=== PATIENT | female | born 1975 | race Caucasian/White ===

== ENCOUNTER 2024-01-23 07:41 | Day surgery (SDC) | payer OTHER ==
[~2024-01-23] VITALS: Ht 154.9 cm; Wt 106.0 kg
--- NOTE | ~2024-01-23 | OR ---
[facility] [address] [place] [id number] Draft DATE OF OPERATION: 01/23/2024 SURGEON: Henry Piña DO PREOPERATIVE DIAGNOSES: 1. Abnormal uterine bleeding. 2. Dysmenorrhea. 3. Submucosal fibroid. 4. Cervical cancer screening. POSTOPERATIVE DIAGNOSES: 1. Abnormal uterine bleeding. 2. Dysmenorrhea. 3. Submucosal fibroid. 4. Cervical cancer screening. PROCEDURES PERFORMED: 1. Hysteroscopic myomectomy. 2. Dilation and curettage. 3. Pap under anesthesia. ESTIMATED BLOOD LOSS: 5 mL. FLUID DEFICIT: 270. ANESTHESIA: MAC. COMPLICATIONS: None. SPECIMENS: Endometrial curettings and submucosal fibroid. FINDINGS: Normal external genitalia. Normal clitoris, urethral meatus, bilateral [place] and [place] glands. Normal vagina and cervix. On hysteroscopy, normal cervical os and bilateral tubal ostia. Somewhat thickened endometrium with large submucosal fibroid PATIENT NAME: SHANTI BRITO OPERATIVE REPORT DATE OF : [birth year] REPORT #: [id number] PHYSICIAN: HENRY PIÑA (CINDY) PCP: ANSLEY MARTINEZ PA-C REPORT IS CONFIDENTIAL AND NOT TO BE RELEASED WITHOUT AUTHORIZATION [facility] [address] [place] [id number] Draft that was resected completely, restoring normal uterine cavity anatomy at the end of the procedure. INDICATIONS: Mrs. Brito is a very pleasant 48-year-old, G3, P1, female who presented with increasing abnormal uterine bleeding and dysmenorrhea. Ultrasound demonstrated a 9.7 cm uterus with likely submucosal fibroid approximately 1.9 cm. The patient was consented for hysteroscopic procedure to remove the fibroid. Risks, benefits, and alternatives were discussed in detail with the patient. The patient is due for cervical cancer screening and desires this to be performed at the same time. DESCRIPTION OF PROCEDURE: The patient was taken to the OR. Time-out was performed to confirm correct patient, correct procedure. MAC anesthesia was adequately established. The patient was prepped and draped in the dorsal lithotomy position with feet in Yellofin stirrups. ICPs were on and running and no preoperative antibiotics were indicated. A weighted speculum was placed in the vagina after the bladder was drained. The anterior lip of the cervix was grasped with an Allis clamp. The cervix was gently dilated using Hegar dilators to #7. An operative hysteroscope was then placed in the cervical os and advanced under direct visualization inside the uterine cavity. Bilateral tubal ostia were appreciated. A large rounded lesion consistent with submucous fibroid was noted and the endometrium was noted to be somewhat thick. MyoSure Lite device was selected at myomectomy and endometrial curettage was performed, restoring normal uterine anatomy. The hysteroscope was withdrawn. The Allis clamp removed. The patient was taken to PACU in good and stable condition. Sponge, needle, and instrument counts correct x2 at the end of the procedure. Pap smear was performed prior to prep. DO CJ Alberto/HENRY /[id number] Copies: PATIENT NAME: SHANTI BRITO OPERATIVE REPORT DATE OF : [birth year] REPORT #: [id number] PHYSICIAN: HENRY PIÑA) PCP: ANSLEY MARTINEZ PA-C REPORT IS CONFIDENTIAL AND NOT TO BE RELEASED WITHOUT AUTHORIZATION [address] [place], [place] [address] [facility] PATIENT NAME: SHANTI BRITO OPERATIVE REPORT DATE OF : [birth year] REPORT #: [id number] PHYSICIAN: HENRY PIÑA) PCP: ANSLEY MARTINEZ PA-C REPORT IS CONFIDENTIAL AND NOT TO BE RELEASED WITHOUT AUTHORIZATION
[~2024-01-23 07:41] MED LIST: ADDERALL XR 2525 MG PO; BACLOFEN5 MG PO; IBLOOD GLUCOSE TEST STRIP 1 EA TEST VI PRN; LACTATED RINGER'S 1,000 ML IV SCH; LIDOCAINE HCL 1% 5 ML SDV INJ ONE; NORVASC10 MG PO; TRILEPTAL300 MG PO; VENTOLIN HFA18 GM INH
[2024-01-23 07:51] VITALS: BP 162/112
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
[2024-01-23] MEDS ORDERED: DEXAMETHASONE SOD PHOS 4 MG/ML VIAL ONE (11:28)
[2024-01-23] MEDS ORDERED: fentaNYL citrate 100 MCG/2 ML VIAL ONE (11:28)
[2024-01-23] MEDS ORDERED: LIDOCAINE HCL 2% 5 ML SDV ONE (11:28)
[2024-01-23] MEDS ORDERED: ondansetron HCL 4 MG/2 ML VIAL ONE (11:28)
[2024-01-23] MEDS ORDERED: propofoL 200 MG/20 ML VIAL ONE (11:28)
[2024-01-23] MEDS ORDERED: ACETAMINOPHEN 1,000 MG/100 ML VIAL ONE (11:41)
[2024-01-23] MEDS ORDERED: diphenhydrAMINE HCL 50 MG/ML VIAL IV PRN (11:45)
[2024-01-23] MEDS ORDERED: IBLOOD GLUCOSE TEST STRIP 1 EA TEST VI PRN (11:45)
[2024-01-23] MEDS ORDERED: ondansetron HCL 4 MG/2 ML VIAL IV PRN ×2 (11:45→12:45)
[2024-01-23] MEDS ORDERED: fentaNYL citrate 50 MCG/ML SDV IV PRN (11:45)
[2024-01-23] MEDS ORDERED: droPERidol 5 MG/2 ML VIAL IV PRN (11:45)
[2024-01-23] MEDS ORDERED: NALOXONE HCL 0.4 MG SYR IV PRN ×2 (11:45→12:45)
[2024-01-23] MEDS ORDERED: diphenhydrAMINE HCL 50 MG/ML VIAL ONE (11:47)
[2024-01-23] MEDS ORDERED: SEVOFLURANE 250 ML BTL ONE (12:14)
[2024-01-23] MEDS ORDERED: OXYCODONE/APAP 5/325 TAB PO PRN (12:45)
[2024-01-23] MEDS ORDERED: METOCLOPRAMIDE HCL 10 MG/2 ML SDV IV PRN (12:45)
[2024-01-23] MEDS ORDERED: FAMOTIDINE 20 MG/ 2 ML VIAL IV PRN (12:45)
--- NOTE | 2024-01-23 12:45 | NUR ---
01/23/24 Edson5 Kari Goldstein 1235-PATIENT ARRIVED TO PACU ON 6L MASK RR EVEN. PATIENT REACTIVE TO VERBAL STIMULI HOB ELEVATED. PATIENT PLACED ON RA. WHEN ASKED IF PATIENT HURTING PATIENT TAKING A MOMENT TO THINK ABOUT IT. DENIES NAUSEA. REDNESS TO CHEST AND FACE IMPROVING WAS GIVEN BENADRYL IV IN OR. IVF INFUSING. SR. BP SAME PREOP. PER SCRAP HANDLER FLEAS WERE FOUND IN GROIN. PATIENT REPORTING "JUST WANTING TO GET HOME TO MY CATS" LEONCIO PAD CDI. 1243-PATIENT AWAKE RA 99% RR EVEN. SR HR 70'S. DENIES PAIN OR NAUSEA.
[2024-01-23 13:08] VITALS: BP 164/99
--- NOTE | 2024-01-23 13:12 | NUR ---
ICED WATER GIVEN. FATHER @ BS. CALL LIGHT WITHIN REACH.
[2024-01-23] MEDS ORDERED: ACETAMINOPHEN-1 EAC1 PO (13:44)
--- NOTE | 2024-01-23 13:45 | NUR ---
PATIENT PUSHES HER CALL LIGHT ASKING TO "GO HOME." SHE REPORTS "I'M IRRITATED AND I JUST WANT TO GO HOME." PATIENT VERBALIZES FRUSTRATION WITH HER FATHER'S GIRLFRIEND. SHE IS EDUCATED ON NEED TO STAY 1 HOUR, UNTIL 1410 AND SHE AGREES. MORE ICED WATER GIVEN.
[2024-01-23 14:07] VITALS: BP 172/109
--- NOTE | 2024-01-23 14:41 | NUR ---
LE 1410: PATIENT AMBULATES TO THE BATHROOM, WITH MY STANDBY ASSIST. SHE DOES WELL WITH THAT. SHE VOIDS 100 ML OF BLOODY URINE. NEW LEONCIO-PAD AND MESH PANTIES ARE GIVEN. DISCHARGE INSTRUCTIONS ARE REVIEWED WITH THE PATIENT AND SHE VERBALIZES UNDERSTANDING. PATIENT DRESSES SELF AND TRANSFERS TO THE AND SHE DOES WELL WITH THAT.
--- NOTE | 2024-01-30 06:03 | PATH ---
[facility] [address] [place], [place] [address] Signed SPECIMEN(S): A EMC AND FIBROID SPECIMEN SOURCE: A. EMC AND FIBROID CLINICAL HISTORY: AUB; dysmenorrhea. FINAL PATHOLOGIC DIAGNOSIS: Endometrium, curettage: - Weakly proliferative endometrium; no hyperplasia or neoplasia identified - Fragments of smooth muscle suggestive of leiomyoma BRP MICROSCOPIC EXAMINATION: Histologic sections of all submitted blocks are examined by light microscopy. These findings, together with the gross examination, support the pathologic diagnosis. GROSS DESCRIPTION: The specimen, labeled and designated "Young, T, " and designated on the requisition "EMC and fibroid," is received in formalin and consists of 4.5 x 2.5 x 0.6 cm aggregate of pink rubbery tissue. The specimen is entirely submitted in (A1-A2). FB (under the direct supervision of a pathologist) The Gross Description was prepared using a voice recognition system. The report was reviewed for accuracy; however, sound-alike word errors, addition and/or deletions may occur. If there is any question about this report, please contact Client Services. ADDITIONAL NOTES: Immunohistochemical and/or in situ hybridization studies if performed in this case included appropriate positive controls that reacted as expected. This test was developed and its performance characteristics determined by [facility]. It has not been cleared or approved by the U.S. Food and Drug Administration. The FDA has determined that such clearance or approval is not necessary. This test is used for clinical purposes. It should not be regarded as investigational or for research. [facility] is certified under the Clinical Laboratory Improvement Amendments of 1988 (CLIA) as qualified to perform high complexity clinical PATIENT NAME: SHANTI PEREZ PATHOLOGY DATE OF : [birth year] REPORT #: [id number] PHYSICIAN: OCTAVIA GRIFFIN PCP: ANSLEY MARTINEZ PA-C REPORT IS CONFIDENTIAL AND NOT TO BE RELEASED WITHOUT AUTHORIZATION [facility] [address] [place] [place] [address] Signed laboratory testing. PERFORMING LABORATORY: Technical component was performed by [facility], [address] [place] [address] (CLIA# [id number]). Professional interpretation was performed by [facility] - [facility] [address] [place] [phone] [id number] Diagnostician: Henrik Campo MD Pathologist Electronically Signed 01/29/2024 Copies: ~ PATIENT NAME: SHANTI PEREZ PATHOLOGY DATE OF : [birth year] REPORT #: [id number] PHYSICIAN: OCTAVIA GRIFFIN PCP: ANSLEY MARTINEZ PA-C REPORT IS CONFIDENTIAL AND NOT TO BE RELEASED WITHOUT AUTHORIZATION
== END 2024-01-23 14:17 | disposition home or self-care (01) ==
LOC: OPS 07:41 → DS 07:41 → OPS 10:15 → DS 13:00 → OPS 14:17 → DS 14:30
PROVIDERS: ATTEND Obstetrics & Gynecology
PROC: 0UB94ZZ Excision of Uterus, Percutaneous Endoscopic Approach (ICD-10-PCS; principal; 2024-01-23 10:15)
PROC: 0UDB8ZZ Extraction of Endometrium, Via Natural or Artificial Opening Endoscopic (ICD-10-PCS; 2024-01-23 10:15)
DX: N85.8 Other specified noninflammatory disorders of uterus (principal); N93.9 Abnormal uterine and vaginal bleeding, unspecified; Z12.4 Encounter for screening for malignant neoplasm of cervix
CPT/HCPCS: 00952; J0131; J1100; J1200; J2001; J2405; J2704; J3010; J7121

== ENCOUNTER 2025-02-16 05:31 | Day surgery (SDC) | payer OTHER ==
[~2025-02-16] VITALS: Ht 154.9 cm; Wt 102.0 kg
[~2025-02-16 05:31] MED LIST changes: +ACETAMINOPHEN-1 EAC1 PO; +CLONIDINE HCL0.1 MG PO; -IBLOOD GLUCOSE TEST STRIP 1 EA TEST VI PRN; -LIDOCAINE HCL 1% 5 ML SDV INJ ONE
[2025-02-16 06:03] VITALS: BP 209/111
[2025-02-16] MEDS ORDERED: DOXAZOSIN MESYLA1 MG PO (06:16)
[2025-02-16] MEDS ORDERED: BEET ROOT500 MG PO (06:17)
[2025-02-16] MEDS ORDERED: L-ARGININE500 MG PO (06:17)
[2025-02-16] MEDS ORDERED: FLUTICASONE PR50 MCG IH (06:18)
[2025-02-16] MEDS ORDERED: IBLOOD GLUCOSE TEST STRIP 1 EA TEST VI PRN ×2 (07:00→09:15)
[2025-02-16] MEDS ORDERED: CEFAZOLIN SODIUM 2 GM/20 ML SYR IV SCH (07:00)
[2025-02-16] MEDS ORDERED: LIDOCAINE HCL 1% 5 ML SDV INJ ONE (07:00)
--- NOTE | 2025-02-16 07:04 | NUR ---
0605 manual blood pressure taken. MANUAL BLOOD BP TAKEN ON RIGHT ARM 200/108. PT STATES THAT THEY CHANGED HER BP MEDS A COUPLE DAYS AGO AND SHE STARTED HER NEW BP MED THIS LAST WEEK.
[2025-02-16] MEDS ORDERED: MAGNESIUM SULFATE 1 GM/2 ML VIAL ONE ×2 (07:20→08:49)
[2025-02-16] MEDS ORDERED: DEXAMETHASONE SOD PHOS 4 MG/ML VIAL ONE (07:20)
[2025-02-16] MEDS ORDERED: ROCURONIUM BROMIDE 50 MG/5 ML SYR ONE ×2 (07:20→08:41)
[2025-02-16] MEDS ORDERED: fentaNYL citrate 100 MCG/2 ML VIAL ONE ×2 (07:20→07:23)
[2025-02-16] MEDS ORDERED: LIDOCAINE HCL 2% 5 ML SDV ONE ×2 (07:20→08:47)
[2025-02-16] MEDS ORDERED: MIDAZOLAM HCL 2 MG/2 ML VIAL ONE (07:21)
[2025-02-16] MEDS ORDERED: KETAMINE in NS 50 MG/5 ML SYR ONE (07:23)
--- NOTE | 2025-02-16 07:42 | NUR ---
PT NOT AVAILABLE FOR VISIT. PROVIDED PRAYER.
[2025-02-16] MEDS ORDERED: LIDOCAINE HCL 4% 5 ML AMP ONE (07:46)
[2025-02-16] MEDS ORDERED: SODIUM CHLORIDE 0.9% 40 ML IV ONE (08:47)
[2025-02-16] MEDS ORDERED: NALOXONE HCL 0.4 MG SYR IV PRN ×2 (09:15→10:00)
[2025-02-16] MEDS ORDERED: HYDROmorphone HCL 1 MG/ML SYR IV PRN ×2 (09:15→10:00)
[2025-02-16] MEDS ORDERED: fentaNYL citrate 50 MCG/ML SDV IV PRN (09:15)
[2025-02-16] MEDS ORDERED: FLUORESCEIN SODIUM 500 MG/5 ML ML ONE (09:18)
[2025-02-16] MEDS ORDERED: SUGAMMADEX SODIUM 200 MG/2 ML ML ONE (09:25)
[2025-02-16] MEDS ORDERED: SIMETHICONE 80 MG CHEW PO PRN (10:00)
[2025-02-16] MEDS ORDERED: PROCHLORPERAZINE EDISYLATE 10 MG/2 ML VIAL IV PRN (10:00)
[2025-02-16] MEDS ORDERED: OXYCODONE/APAP 5/325 TAB PO PRN (10:00)
[2025-02-16] MEDS ORDERED: MAGNESIUM HYDROXIDE/AL HYDROX 30 ML CUP PO PRN (10:00)
[2025-02-16] MEDS ORDERED: FAMOTIDINE 20 MG/ 2 ML VIAL IV PRN (10:00)
--- NOTE | 2025-02-16 10:05 | NUR ---
02/16/25 Peg Spencer PATIENT IS POSITIONED MULTIPLE TIMES FOR ADEQUATE GAS EXCHANGE. PROLONGED EXPIRATORY PHASE IS NOTED.
[2025-02-16 11:04] VITALS: BP 150/116
[2025-02-16 12:04] VITALS: BP 163/119
--- NOTE | 2025-02-16 12:40 | NUR ---
LE 1053 PT ARRIVED TO DAY SURGERY RM TX FROM PACU VIA STEACHER. REPORT TAKEN FROM DIANA SEPULVEDA. PT REPORTING 8/10 PAIN AND NAUSEA THIS TIME. BRANTLEY CATH WAS REMOVED IN PACU. PT HAS WATER AND JELLO AT BEDSIDE. DISCUSSED PLAN TO GET NAUSEA UNDER CONTROL SO THAT PT CAN EAT SOMETHING TO THEN GET A ORAL PAIN PILL ON BOARD. PT HAS CALL LIGHT WITHIN REACH AND PERSONAL ITEMS WITHIN REACH. PT SUPPORT PERSON IN ROOM. 1110 SPOKE WITH SHIRA HERNANDEZ, 4 MG OF ZOFRAN OKAY TO GIVE ONCE NOW. DUE TO PT ONLY RECEIVED 4 MG OF ZOFRAN IN SURGERY 1115 NAUSEA MEDCAITION GIVEN PER EMAR. 1200 PT WAS RESTING WTIH EYES CLOSED WHEN RN WALKED INTO ROOM. PT RESPONSIVE TO TACTILE STIMULI TO WAKE. HOURLY ROUNDING DONE WITH PT. PT ABLE TO TOLERATE ORAL WATER AND JELLO. PT STILL REPORTS NAUSEA BUT BETTER THAN IT WAS BEFORE. PT REPORTING 9/10 PAIN AT THIS TIME, BUT PT FALLS ASLEEP WHEN RN WALKS OUT OF ROOM. CALL LIGHT WTIHIN REACH, BED LOW AND LOCKED.
--- NOTE | 2025-02-16 12:45 | NUR ---
1203 PAIN MEDICATION GIVEN PER EMAR.
[2025-02-16 12:55] VITALS: BP 183/113
[2025-02-16] MEDS ORDERED: SIMETHICONE 80 MG CHEW PO SCH (13:00)
--- NOTE | 2025-02-16 13:00 | NUR ---
1255 HOURLY ROUNDING DONE WITH PT. PT REPORTS FEELING MUCH BETTER. PT STILL HAS NAUSEA BUT IT IS NOT BAD EARLIER. PT REPORTS TOLERABLE 6/10 PAIN AT THIS TIME. VITALS TAKEN. IV ASSESSED. 1300 PT AMBULATES TO THE BATHROOM ON OWN WITH RN IN ROOM. 1305 PT ABLE TO URINATE 500 MLS OF CLEAR YELLOW URINE. SMALL AMOUNT OF RED DRAINAGE. PT ABLE TO AMBULATE BACK TO ROOM. PT GETTING DRESSED.
[2025-02-16] MEDS ORDERED: SEVOFLURANE 250 ML BTL INH ONE (13:06)
--- NOTE | 2025-02-16 13:35 | NUR ---
1320 DISCHARGE INFORMATION GONE OVER WITH PT AND SUPPORT PERSON. IV REMOVED FOR DISCHARGE. NO QUESTIONS AT THIS TIME. DISCHARGE INFO AND PRESCRIPTION GIVEN TO PT SUPPORT PERSON. PT ABLE TO AMBULATE SELF TO WHEELCHAIR. 1328 PT DISCHARGED FROM DAY SURGERY VIA WHEELCHAIR TO THE FRONT OF THE HOSPITAL TO SUPPORT PERSONS CAR.
--- NOTE | 2025-02-16 21:37 | OR ---
[facility] [address] [place], [place] [address] Signed DATE OF OPERATION: 02/16/2025 SURGEON: Henry Piña DO PREOPERATIVE DIAGNOSES: 1. Abnormal uterine bleeding. 2. Adenomyosis. 3. Dysmenorrhea. 4. Dyspareunia. 5. Endometriosis. 6. Submucosal fibroid. POSTOPERATIVE DIAGNOSES: 1. Abnormal uterine bleeding. 2. Adenomyosis. 3. Dysmenorrhea. 4. Dyspareunia. 5. Endometriosis. 6. Submucosal fibroid. PROCEDURES PERFORMED: 1. Total laparoscopic hysterectomy. 2. Bilateral salpingectomy. 3. Cystoscopy. BACKUP ENGINEER: AIRPORT PLANNER. ANESTHESIA: General. ESTIMATED BLOOD LOSS: 75 mL. SPECIMENS: Uterus, cervix, and bilateral fallopian tubes. DRAINS: Chicas to gravity. Electronically Signed By: HENRY PIÑA DO (JD) 02/16/25 2137 PATIENT NAME: SHANTI BRITO OPERATIVE REPORT DATE OF : [birth year] REPORT #: [id number] PHYSICIAN: HENRY PIÑA DO (JD) PCP: MILTON COLON MD REPORT IS CONFIDENTIAL AND NOT TO BE RELEASED WITHOUT AUTHORIZATION [facility] [address] [place], [place] [address] Signed FINDINGS: Normal left upper quadrant with some fatty infiltration of the liver in the right upper quadrant. No significant abdominal adhesions. In the pelvis, normal uterus, tubes, and ovaries bilaterally with benign-appearing ovarian cysts. There are some powder burn endometriosis lesions of the posterior cul-de-sac behind the uterus directly between the uterosacral ligaments that were excised. Excellent hemostasis and apical support at the end of the procedure. Normal bladder with bilateral ureteral jets appreciated. COMPLICATIONS: None. INDICATIONS: Ms. Brito is a very pleasant 49-year-old female with a history of worsening periods and pelvic pain. Imaging demonstrated adenomyosis and fibroid uterus. She has failed conservative therapy and desires definitive treatment with total laparoscopic hysterectomy, bilateral salpingectomy, and cystoscopy. Risks, benefits, and alternatives were discussed in detail with the patient. The patient understands and wished to proceed with the procedure. DESCRIPTION OF PROCEDURE: The patient was taken to the OR where a time-out was performed to confirm correct patient and correct procedure. General anesthesia was adequately established. The patient was prepped and draped in dorsal lithotomy position with feet in Yellofin stirrups. ICPs were on and running and the patient received Ancef 2 g preoperatively per SCIP protocol. No heparin was indicated. Chicas catheter was inserted. A weighted speculum was placed in vagina and the anterior lip of the cervix was grasped with an Allis clamp. The cervix was gently dilated using Hegar dilators. VCare uterine manipulator was placed without difficulty. The surgeon's gloves were changed. Attention was turned to the abdomen. Approximately 1-2 cm below the umbilicus, the skin was infiltrated with 0.25% Marcaine with epinephrine and 3-4 cm infraumbilical incision was made. This incision was carried down to the fascia, which was grasped with hemostats, elevated, and the fascia was entered with Metzenbaum scissors. The fascial incision was extended bilaterally using Metzenbaum scissors. Stay sutures of 0 Vicryl were placed in the anterior and posterior edges of the fascial incision. The peritoneum was then entered bluntly. Sierra operative port was then placed without difficulty and pneumoperitoneum was established. Survey of the abdomen and pelvis was performed demonstrating fatty infiltration of the liver, but otherwise normal upper abdomen. The pelvis demonstrates generally normal uterus, fallopian tubes, bilateral ovaries with a benign-appearing ovarian cyst and some powder burn lesions of the cul-de-sac directly between the uterosacral ligaments that were able to be excised with the hysterectomy. A 5 mm assist port was placed in the left lower quadrant under direct visualization. An 8 mm expanding port was placed under direct visualization in the right lower quadrant Electronically Signed By: HENRY SU) DO ESTEFANIA 02/16/25 2137 PATIENT NAME: SHANTI BRITO OPERATIVE REPORT DATE OF : [birth year] REPORT #: [id number] PHYSICIAN: HENRY PIÑA) PCP: MILTON COLON MD REPORT IS CONFIDENTIAL AND NOT TO BE RELEASED WITHOUT AUTHORIZATION [address] [address] Signed without complication. The left fallopian tube was grasped, elevated, and dissected along the mesosalpinx and amputated at the cornu. The left uteroovarian ligament was fulgurated and divided with excellent hemostasis. The left round ligament was fulgurated and divided. The leaves of the broad ligament were divided from the midportion of the round ligament to the vaginal cup anteriorly and to the uterosacral ligament posteriorly. Dissection across the posterior edge of the vaginal cup to the contralateral uterosacral ligament. Again, able to excise the dark powder burn lesions of endometriosis previously noted. The bladder flap was developed and the bladder was pushed well below the vaginal cup. The uterine vessels were identified, fulgurated, and divided without difficulty. The process was repeated on the right without difficulty. The utero-ovarian ligament and round ligament were fulgurated and divided with excellent hemostasis. The leaves of the broad ligament were divided and completion of dissection of the bladder flap and posterior cul-de-sacs were performed. The uterine vessels were identified, fulgurated with excellent hemostasis. Colpotomy was performed using Sonicision device and the uterus and cervix were delivered through the vagina without difficulty. The pelvis was irrigated and found to be hemostatic. Hysterotomy was repaired using V-Loc suture with an Endostitch device with careful attention to incorporate the uterosacral ligaments bilaterally and the vaginal epithelium with each bite. Attention was turned to cystoscopy. The Chicas catheter was removed. A 70 degree cystoscope was placed in the urethral meatus and advanced under direct visualization in the bladder. Normal bladder dome and bilateral ureteral jets was appreciated. The bladder was drained. Chicas catheter was inserted and attention turned back to the abdomen. The pelvis was irrigated, found to be hemostatic. Dissection planes were somewhat raw and Tisseel was applied to this to ensure excellent hemostasis postoperatively. Pneumoperitoneum was reduced. Trocars were removed. Infraumbilical fascia was reapproximated using 0 Vicryl in a running nonlocked manner and subcu infraumbilically was repaired using 2-0 Vicryl in a running nonlocked manner after plication of the stay sutures to reinforce the fascial incision. Skin was reapproximated using 3-0 Vicryl Rapide and subcuticular stitch with excellent hemostasis and cosmesis. The patient was then taken to PACU in good and stable condition. Sponge, needle, and instrument counts were correct x2 at the end of the procedure. DO CJ Alberto/HENRY /[id number] Electronically Signed By: HENRY PIÑA (JD), DO 02/16/25 2137 PATIENT NAME: SHANTI BRITO OPERATIVE REPORT DATE OF : [birth year] REPORT #: [id number] PHYSICIAN: HENRY PIÑA DO (JD) PCP: MILTON COLON MD REPORT IS CONFIDENTIAL AND NOT TO BE RELEASED WITHOUT AUTHORIZATION [facility] [address] [place] [id number] Signed Copies: ~ Electronically Signed By: HENRY PIÑA (JD), DO 02/16/25 2137 PATIENT NAME: SHANTI BRITO OPERATIVE REPORT DATE OF : [birth year] REPORT #: [id number] PHYSICIAN: HENRY PIÑA DO (JD) PCP: MILTON COLON MD REPORT IS CONFIDENTIAL AND NOT TO BE RELEASED WITHOUT AUTHORIZATION
--- NOTE | 2025-02-19 20:26 | PATH ---
[facility] [address] [place], [place] [address] Signed SPECIMEN(S): A UTERUS, CERVIX, BILATERAL TUBES SPECIMEN SOURCE: A. UTERUS, CERVIX, BILATERAL TUBES CLINICAL HISTORY: Abnormal uterine bleeding, dysmenorrhea FINAL PATHOLOGIC DIAGNOSIS: Uterus with bilateral fallopian tubes, hysterectomy with bilateral salpingectomy: - Cervix: Squamous metaplasia. - Negative for intraepithelial lesion and malignancy. - Endometrium: Inactive to weakly proliferative endometrium. - Negative for hyperplasia, atypia, and malignancy. - Myometrium: Benign myometrium with deeply penetrating adenomyosis and benign leiomyomata (up to 2.0 cm in diameter). - Serosa: Benign serosa with no histopathologic abnormality. - Fallopian tubes: Right and left fallopian tubes with fimbriated ends. - Minute bilateral benign paratubal cysts are present. - Otherwise no pathologic abnormality identified. SDL MICROSCOPIC EXAMINATION: Histologic sections of all submitted blocks are examined by light microscopy. These findings, together with the gross examination, support the pathologic diagnosis. GROSS DESCRIPTION: The specimen, labeled and designated "Young, uterus, cervix, bilateral fallopian tubes," is received in formalin and consists of uterus and cervix with and undesignated bilateral fallopian tubes. The uterus measure 6.8 cm from cornu to cornu, 5.5 cm anterior to posterior and 9.5 cm from cervix to fundus, and weighs 166 grams. Serosal surface is violaceous and smooth. The serosal surface shows two penduline white, firm nodules that measure 0.6 cm in greatest dimension each. The ectocervix is pink-edmond, slightly roughed and disrupted. The ectocervix measures 2.5 x 2.1 cm. Sectioning through the cervix reveals pink-edmond homogenous tissue. The endometrial cavity is irregularly shaped and measure 3.0 x 2.0 cm. It is lined with pink-edmond, shaggy endometrium with thickness PATIENT NAME: SHANTI PEREZ PATHOLOGY DATE OF : [birth year] REPORT #: [id number] PHYSICIAN: OCTAVIA PATHOLOGY PCP: MILTON COLON MD REPORT IS CONFIDENTIAL AND NOT TO BE RELEASED WITHOUT AUTHORIZATION [facility] [address] [place], [place] [address] Signed of 0.2 cm. Sectioning through myometrium reveals seven additional white, firm, well-defined nodules that range in size from 0.6 to 2.0 cm. The nodules are subendometrial, subserosal, and intramural. Sectioning through the nodules reveals white, firm, whorled cut surfaces. There are no signs of hemorrhage or necrosis. The myometrium measures up to 2.9 cm in thickness. The reminder of the myometrium shows a pink-edmond trabeculated cut surface. Both fallopian tubes show fimbria and violaceous and smooth serosa. The first fallopian tube measures 4.5 cm in length and 0.7 cm in diameter. The second fallopian tube measures 4.7 cm in length and 0.7 cm in diameter. Sectioning through both fallopian tubes is grossly unremarkable. Cassette Summary: (A1) cervix, risk control field representative sections, posterior inked (A2) endomyometrium, risk control field representative sections (A3) two intramural and two serosal penduline nodules, risk control field representative sections (A4) five nodules, risk control field representative sections (A5) first fallopian tube, risk control field representative sections (A6) second fallopian tube, risk control field representative sections JS (under the direct supervision of a pathologist) The Gross Description was prepared using a voice recognition system. The report was reviewed for accuracy; however, sound-alike word errors, addition and/or deletions may occur. If there are any questions about this report, please contact Client Services. ADDITIONAL NOTES: Immunohistochemical and/or in situ hybridization studies if performed in this case included appropriate positive controls that reacted as expected. This test was developed and its performance characteristics determined by [facility]. It has not been cleared or approved by the U.S. Food and Drug Administration. The FDA has determined that such clearance or approval is not necessary. This test is used for clinical purposes. It should not be regarded as investigational or for research. [facility] is certified under the Clinical Laboratory Improvement Amendments of 1988 (CLIA) as qualified to perform high complexity clinical laboratory testing. PERFORMING LABORATORY: PATIENT NAME: SHANTI PEREZ PATHOLOGY DATE OF : [birth year] REPORT #: [id number] PHYSICIAN: OCTAVIA GRIFFIN PCP: MILTON COLON MD REPORT IS CONFIDENTIAL AND NOT TO BE RELEASED WITHOUT AUTHORIZATION [address] [address] Signed Technical component was performed by [facility], [address] [place] [id number] (CLIA# [id number]). Professional interpretation was performed by [facility] - [facility], [address] [place] [id number] (CLIA#: [id number]). Diagnostician: Jeanna Ku MD Pathologist Electronically Signed 02/19/2025 Copies: ~ PATIENT NAME: SHANTI PEREZ PATHOLOGY DATE OF : [birth year] REPORT #: [id number] PHYSICIAN: OCTAVIA PATHOLOGY PCP: MILTON COLON MD REPORT IS CONFIDENTIAL AND NOT TO BE RELEASED WITHOUT AUTHORIZATION
== END 2025-02-16 13:28 | disposition home or self-care (01) ==
LOC: OPS 05:31 → DS 05:31 → OPS 07:30
PROVIDERS: ATTEND Obstetrics & Gynecology
PROC: 0UT74ZZ Resection of Bilateral Fallopian Tubes, Percutaneous Endoscopic Approach (ICD-10-PCS; 2025-02-16)
PROC: 0UT94ZZ Resection of Uterus, Percutaneous Endoscopic Approach (ICD-10-PCS; principal; 2025-02-16 07:30)
DX: N80.03 Adenomyosis of the uterus (principal); D25.0 Submucous leiomyoma of uterus; N83.8 Other noninflammatory disorders of ovary, fallopian tube and broad ligament; N87.9 Dysplasia of cervix uteri, unspecified; N80.00 Endometriosis of the uterus, unspecified; J45.909 Unspecified asthma, uncomplicated; I10 Essential (primary) hypertension; F17.210 Nicotine dependence, cigarettes, uncomplicated; Z79.899 Other long term (current) drug therapy; Z88.8 Allergy status to other drugs, medicaments and biological substances
CPT/HCPCS: 00840; 88307; J0690; J1100; J1200; J2003; J2250; J2405; J2704; J3010; J3475; J3490; J7121